=== PATIENT | female | born 1960 | race Caucasian/White ===

== ENCOUNTER 2018-05-18 08:27 | Day surgery (SDC) | payer BC ==
[~2018-05-18] VITALS: Ht 157.5 cm; Wt 79.5 kg
[~2018-05-18 08:27] MED LIST: LIDOcaine 1% 30ml preserv. free vial SQ STA; NO HOME MEDS
[2018-05-18] MEDS ORDERED: PARO20TA6 PO (08:39)
[2018-05-18 08:54] VITALS: BP 123/82
[2018-05-18 11:15] VITALS: BP 133/95
[2018-05-18 11:20] VITALS: BP 138/87
[2018-05-18 11:25] VITALS: BP 118/59
[2018-05-18 11:40] VITALS: BP 106/73
== END 2018-05-18 11:50 | disposition home or self-care (01) ==
LOC: SSTAY O 08:27
PROVIDERS: ATTEND Radiology Vascular & Interventional Radiology
DX: J90 Pleural effusion, not elsewhere classified (principal); F17.210 Nicotine dependence, cigarettes, uncomplicated; F41.8 Other specified anxiety disorders; Z87.01 Personal history of pneumonia (recurrent); Z90.49 Acquired absence of other specified parts of digestive tract; Z72.89 Other problems related to lifestyle; Z98.890 Other specified postprocedural states; Z79.899 Other long term (current) drug therapy
CPT/HCPCS: 32555; 71045; J3490

== ENCOUNTER 2018-06-05 08:09 | Day surgery (SDC) | payer BC ==
[~2018-06-05] VITALS: Ht 157.5 cm; Wt 79.3 kg
[~2018-06-05 08:09] MED LIST changes: -LIDOcaine 1% 30ml preserv. free vial SQ STA; -NO HOME MEDS; +PARO20TA6 PO
[2018-06-05 08:30] VITALS: BP 147/91
[2018-06-05 08:40] VITALS: BP 147/91
[2018-06-05 08:50] VITALS: BP 134/95
[2018-06-05] MEDS ORDERED: LIDOcaine 1% 30ml preserv. free vial SQ ONE (09:00)
[2018-06-05 09:05] VITALS: BP 126/84
[2018-06-05 09:20] VITALS: BP 113/78
== END 2018-06-05 09:25 | disposition home or self-care (01) ==
LOC: SSTAY O 08:09
PROVIDERS: ATTEND Radiology Diagnostic Radiology
DX: J90 Pleural effusion, not elsewhere classified (principal); F17.210 Nicotine dependence, cigarettes, uncomplicated; F41.8 Other specified anxiety disorders; Z87.01 Personal history of pneumonia (recurrent); Z87.09 Personal history of other diseases of the respiratory system; Z90.49 Acquired absence of other specified parts of digestive tract; Z72.89 Other problems related to lifestyle; Z98.890 Other specified postprocedural states; Z79.899 Other long term (current) drug therapy
CPT/HCPCS: 32555; 71045; J3490

== ENCOUNTER 2018-06-13 07:11 | Day surgery (SDC) | payer BC ==
[~2018-06-13] VITALS: Ht 157.5 cm; Wt 77.7 kg
[2018-06-13] VITALS (16 sets, daily range): BP systolic 105–134; BP diastolic 62–99
[2018-06-13] MEDS ORDERED: normal saline 1000ml 1,000 ML IV SCH (07:35)
[2018-06-13] MEDS ORDERED: VARE0.5T PO (08:06)
[2018-06-13] MEDS ORDERED: LIDOcaine 1%/PF 5ML 10 MG/ML VIAL ONE (08:43)
[2018-06-13 08:47] LABS: BASOPHILS % (AUTO) 0.6 % (0-1); EOSINOPHILS # (AUTO) 0.3 X10'3 (0-0.9); EOSINOPHILS % (AUTO) 3.7 % (0-6); HEMOGLOBIN 14.5 g/dl (12.0-16.0); LYMPHOCYTES # (AUTO) 1.4 X10'3 (1.1-4.8); LYMPHOCYTES % (AUTO) 17.6 % (21-51); MEAN CORPUSCULAR HEMOGLOBIN 28.6 PG (27.0-31.0); MEAN CORPUSCULAR HGB CONC 33.7 % (33.0-36.5); MEAN CORPUSCULAR VOLUME 84.9 FL (78-98); MEAN PLATELET VOLUME 9.5 FL (7.4-10.4); MONOCYTES # (AUTO) 0.6 X10'3 (0-0.9); MONOCYTES % (AUTO) 7.2 % (2-12); NEUTROPHILS # (AUTO) 5.5 X10'3 (1.8-7.7); NEUTROPHILS % (AUTO) 70.9 % (42-75); PLATELET COUNT 274 X10'3 (140-440); RED BLOOD COUNT 5.06 X10'6 (4.20-5.60); RED CELL DISTRIBUTION WIDTH 14.5 % (11.5-14.5); WHITE BLOOD COUNT 7.8 X10'3 (4.5-11.0)
[2018-06-13] MEDS ORDERED: midazolam 2 mg/2 ml injection ONE (08:58)
[2018-06-13 08:59] LABS: PROTHROMBIN TIME 10.4 SECONDS (9.0-12.0)
[2018-06-13] MEDS ORDERED: fentaNYL/PF 50MCG/1 ML 2ML syringe ONE (08:59)
[2018-06-13] MEDS ORDERED: midazolam 2 mg/2 ml injection IV PRN (09:00)
[2018-06-13] MEDS ORDERED: fentaNYL/PF 50MCG/1 ML 2ML syringe IV PRN (09:00)
[2018-06-13] MEDS ORDERED: LIDOcaine 1%/PF 5ML 10 MG/ML VIAL SQ ONE (09:00)
[2018-06-13 09:01] LABS: ALBUMIN 3.3 G/DL (3.4-5.0); ANION GAP 9 (8-16); BLOOD UREA NITROGEN 6 MG/DL (7-18); BUN/CREATININE RATIO 9.7 (6.6-38.0); CALCIUM 9.6 MG/DL (8.5-10.1); CHLORIDE 103 MMOL/L (99-107); CREATININE 0.62 MG/DL (0.40-0.90); GLUCOSE 107 MG/DL (70-104); POTASSIUM 4.4 MMOL/L (3.5-5.1); SODIUM 140 MMOL/L (135-145); TOTAL CARBON DIOXIDE 27.9 MMOL/L (24-32); eGFR > 90 ML/MIN
[2018-06-13] MEDS ORDERED: morphine 4 MG/ML inj SYRINge IV PRN (10:05)
[2018-06-13] MEDS ORDERED: HYDROcodone/acetaminophen 5mg/325mg tablet PO PRN (10:05)
== END 2018-06-13 12:30 | disposition home or self-care (01) ==
LOC: SSTAY O 07:11
PROVIDERS: ATTEND Radiology Diagnostic Radiology
DX: R91.8 Other nonspecific abnormal finding of lung field (principal); J90 Pleural effusion, not elsewhere classified; F17.210 Nicotine dependence, cigarettes, uncomplicated; F32.9 Major depressive disorder, single episode, unspecified; Z87.09 Personal history of other diseases of the respiratory system; Z90.49 Acquired absence of other specified parts of digestive tract; Z72.89 Other problems related to lifestyle; Z79.899 Other long term (current) drug therapy; Z98.890 Other specified postprocedural states
CPT/HCPCS: 32405; 36415; 71045; 77012; 80048; 85025; 85610; 99152; 99153; J2001; J2250; J3010; J7030

== ENCOUNTER 2018-06-22 07:12 | Day surgery (SDC) | payer BC ==
[~2018-06-22] VITALS: Ht 157.5 cm; Wt 78.0 kg
[~2018-06-22 07:12] MED LIST changes: +ALPR-623 PO; +FOLI0.4T2 PO; +VARE0.5T PO
[2018-06-22] MEDS ORDERED: albumin 25% 50mL bottle X 2 BOTTLES IV ONE (07:30)
[2018-06-22 07:32] VITALS: BP 108/78
[2018-06-22] MEDS ORDERED: fentaNYL/PF 50MCG/1 ML 2ML syringe IV PRN (08:25)
[2018-06-22] MEDS ORDERED: heparin sodium, porcine/PF 100unit/ml 5ML syringe ICATH ONE (08:25)
[2018-06-22] MEDS ORDERED: normal saline 1000ml 1,000 ML IV SCH ×2 (08:25→08:34)
[2018-06-22] MEDS ORDERED: LIDOcaine 1%/PF 5ML 10 MG/ML VIAL SQ ONE (08:25)
[2018-06-22] MEDS ORDERED: midazolam 2 mg/2 ml injection IV PRN (08:25)
[2018-06-22] MEDS ORDERED: LIDOcaine 1%/PF 5ML 10 MG/ML VIAL ONE (08:36)
[2018-06-22] MEDS ORDERED: heparin sodium, porcine/PF 100unit/ml 5ML syringe ONE (08:38)
[2018-06-22 09:30] VITALS: BP 121/87
[2018-06-22 09:45] VITALS: BP 121/69
[2018-06-22 10:00] VITALS: BP 120/78
[2018-06-22 10:15] VITALS: BP 129/81
== END 2018-06-22 10:30 | disposition home or self-care (01) ==
LOC: SSTAY O 07:12
PROVIDERS: ATTEND Radiology Diagnostic Radiology
DX: C34.32 Malignant neoplasm of lower lobe, left bronchus or lung (principal); F17.210 Nicotine dependence, cigarettes, uncomplicated; F32.9 Major depressive disorder, single episode, unspecified; Z87.01 Personal history of pneumonia (recurrent); Z87.09 Personal history of other diseases of the respiratory system; Z72.89 Other problems related to lifestyle; Z90.49 Acquired absence of other specified parts of digestive tract; Z98.890 Other specified postprocedural states; Z79.899 Other long term (current) drug therapy
CPT/HCPCS: 36561; 76937; 77001; J1642; J2001; J7030; A4620; A6219; C1788; C1894

== ENCOUNTER 2018-10-19 06:33 | Day surgery (SDC) | payer BC ==
[~2018-10-19] VITALS: Ht 157.5 cm; Wt 82.5 kg
[~2018-10-19 06:33] MED LIST changes: -VARE0.5T PO
[2018-10-19 07:25] VITALS: BP 125/81
[2018-10-19] MEDS ORDERED: ONDA8TAB13 PO (07:43)
[2018-10-19] MEDS ORDERED: PROC10TA10 PO (07:43)
[2018-10-19 08:42] VITALS: BP 144/86
[2018-10-19 08:55] VITALS: BP 121/73
[2018-10-19 08:59] VITALS: BP 122/88
[2018-10-19 09:12] VITALS: BP 120/78
== END 2018-10-19 09:25 | disposition home or self-care (01) ==
LOC: SSTAY O 06:33
PROVIDERS: ATTEND Radiology Vascular & Interventional Radiology
DX: J90 Pleural effusion, not elsewhere classified (principal)
CPT/HCPCS: 32555; 71045; C1729